=== PATIENT | female | born 2000 | race Two or more races ===

== ENCOUNTER 2022-06-11 05:54 | Day surgery (SDC) | payer OTHER ==
[~2022-06-11] VITALS: Ht 154.9 cm; Wt 61.7 kg
[~2022-06-11 05:54] MED LIST: OMEGA-31000 MG PO; SINGULAIR10 MG PO
== END 2022-06-11 16:00 | disposition home or self-care (01) ==
LOC: CIR.AMB 05:54
PROVIDERS: ATTEND Specialist
DX: N62 Hypertrophy of breast (principal); Z20.822 Contact with and (suspected) exposure to COVID-19; J45.909 Unspecified asthma, uncomplicated; Z86.16 Personal history of COVID-19; N64.89 Other specified disorders of breast